=== PATIENT | female | born 1985 | race Asian ===

== ENCOUNTER 2017-02-11 07:44 | Emergency (ER) | payer OTHER ==
[~2017-02-11] VITALS: Ht 157.5 cm; Wt 57.0 kg
[~2017-02-11 07:44] MED LIST: TRIA0.5O TOPICAL
[2017-02-11 07:49] VITALS: BP 136/93; PULSE 74; RESP 16; TEMP 98; O2SAT 98
[2017-02-11] MEDS ORDERED: PREN29TA PO (07:52)
[2017-02-11 08:16] LABS: AUTOMATED NEUTROPHIL # 7.3 TH/MM3 (1.8-7.7); BASOPHIL # 0.1 TH/MM3 (0-0.2); BASOPHIL % 0.7 % (0.0-2.0); EOSINOPHIL # 0.3 TH/MM3 (0-0.4); EOSINOPHIL % 2.9 % (0.0-4.0); HEMATOCRIT 39.6 % (35.0-46.0); HEMO FLAGS DIFF FINAL; LYMPH % 24.8 % (9.0-44.0); LYMPHOCYTE # 2.8 TH/MM3 (1.0-4.8); MEAN CELL VOLUME 86.5 FL (80.0-100.0); MEAN CORPUSCULAR HEMOGLOBIN 28.7 PG (27.0-34.0); MEAN CORPUSCULAR HGB CONC 33.2 % (32.0-36.0); MONO % 7.2 % (0.0-8.0); NEUT % 64.4 % (16.0-70.0); PLATELET COUNT 247 TH/MM3 (150-450); RED BLOOD COUNT 4.57 MIL/MM3 (4.00-5.30); RED CELL DISTRIBUTION WIDTH 13.5 % (11.6-17.2); WHITE BLOOD COUNT 11.4 TH/MM3 (4.0-11.0)
[2017-02-11 08:26] LABS: BACTERIA, URINE RARE /hpf; BLOOD, URINE MOD (NEG); GLUCOSE,URINE NEG (NEG); KETONE, URINE NEG (NEG); NITRITE,URINE NEG (NEG); URINE COLOR LIGHT-YELLOW (YELLW/STRAW)
[2017-02-11 08:32] LABS: COMMENT (UR) CULT NOT INDICATED; CULTURE IF INDICATED CULT NOT INDICATED
[2017-02-11 08:33] LABS: BICARBONATE 26.5 MEQ/L (21.0-32.0)
[2017-02-11 08:55] LABS: POTASSIUM 3.2 MEQ/L (3.5-5.1)
--- NOTE | 2017-02-11 09:30 | RADRPT ---
EXAM DATE/TIME: 02/11/2017 08:07 [place] COMPARISON: No previous studies available for comparison. INDICATIONS : Ectopic. LAB(S): Beta-hC MEDICAL HISTORY : . Asthma. Eczema. SURGICAL HISTORY : None. ENCOUNTER: Initial ACUITY: 1 day PAIN SCORE: 2/10 LOCATION: Bilateral pelvis MEASUREMENTS: UTERUS: 8.6 x 7.7 x 4.5 cm ENDOMETRIAL STRIPE: 11 mm RIGHT OVARY: 2.2 x 2.1 x 1.8 cm CROWN RUMP LENGTH: 0.2 cm = 5 WKS 5 DAYS FINDINGS: UTERUS: There is hypoechoic mass within the uterus has the appearance of the yolk sac with no cardiac ac tivity identified. 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 This may well be blighted ovum with a small subchorionic hemorrhage. RIGHT OVARY: Small cyst. LEFT OVARY: Ovary contains no mass or significant cystic lesion. MISCELLANEOUS: No free fluid. CONCLUSION: Probable blighted ovary ovum corresponding to 5 week gestation. There is no free fluid. Followup is suggested. Sai Drake MD FACR on February 11, 2017 at 9:23 Board Certified Radiologist. This report was verified electronically.
--- NOTE | 2017-02-11 09:45 | PD ---
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 Patient reports that she is about 6 weeks with her first child, she noticed spotting and lower abdominal cramping earlier today. Denies any vaginal discharge at this time. NO other complaints PFSH Past Medical History Asthma: Yes ( A CHILD) ?: LMP: 01/02/17 Past Surgical History Surgical History: No Previous Surgery Social History Alcohol Use: Yes (SOCIALLY) Tobacco Use: No Substance Use: No Allergies-Medications (Allergen,Severity, Reaction): Coded Allergies: No Known Allergies (Unverified , 02/11/17) Reported Meds & Prescriptions Reported Meds & Active Scripts Active Reported Plus Iron 29-1 mg ( Vit-Iron Carbonyl) 29 Mg Iron-1 Mg Tab 1 Tab PO DAILY Review of Systems General / Constitutional: No: Fever Eyes: No: Visual changes HENT: No: Headaches Cardiovascular: No: Chest Pain or Discomfort Respiratory: No: Shortness of Breath Gastrointestinal: Positive: Abdominal Pain Genitourinary: Positive: Vaginal Bleeding, No: Dysuria Musculoskeletal: No: Pain Skin: No Rash Neurologic: No: Weakness Psychiatric: No: Depression Endocrine: No: Polydipsia Hematologic/Lymphatic: No: Easy Bruising Physical Exam Narrative GENERAL: No acute distress SKIN: Focused skin assessment warm/dry. HEAD: Atraumatic. Normocephalic. EYES: Pupils equal and round. No scleral icterus. No injection or drainage. ENT: No nasal bleeding or discharge. Mucous membranes pink and moist. NECK: Trachea midline. No JVD. CARDIOVASCULAR: Regular rate and rhythm. No murmur appreciated. RESPIRATORY: No accessory muscle use. Clear to auscultation. Breath sounds equal bilaterally. GASTROINTESTINAL: Abdomen soft, non-tender, nondistended. Hepatic and splenic margins not palpable. MUSCULOSKELETAL: No obvious deformities. No clubbing. No cyanosis. No edema. NEUROLOGICAL: Awake and alert. No obvious cranial nerve deficits. Motor grossly within normal limits. Normal speech. PSYCHIATRIC: Appropriate mood and affect; insight and judgment normal. Data Data Last Documented VS Vital Signs Date Time Temp Pulse Resp B/P (MAP) Pulse Ox O2 Delivery O2 Flow Rate FiO2 02/11/17 07:49 98.0 74 16 136/93 (107) 98 Orders Orders Beta Hcg (Quant/Titer) (02/11/17 07:48) Complete Blood Count With Diff (02/11/17 07:48) Basic Metabolic Panel (Bmp) (02/11/17 07:48) Complete Rh (02/11/17 07:48) Type And Screen (02/11/17 07:48) Us Pelvis (Ques Pr/Ect)W Trans (02/11/17 ) Urinalysis - C+S If Indicated (02/11/17 07:48) Iv Access Insert/Monitor (02/11/17 07:48) Ed Urine Pregnancytest Poc (02/11/17 07:52) Labs Laboratory Tests Test 02/11/17 08:00 White Blood Count 11.4 TH/MM3 Red Blood Count 4.57 MIL/MM3 Hemoglobin 13.1 GM/DL Hematocrit 39.6 % Mean Corpuscular Volume 86.5 FL Mean Corpuscular Hemoglobin 28.7 PG Mean Corpuscular Hemoglobin Concent 33.2 % Red Cell Distribution Width 13.5 % Platelet Count 247 TH/MM3 Mean Platelet Volume 9.0 FL Neutrophils (%) (Auto) 64.4 % Lymphocytes (%) (Auto) 24.8 % Monocytes (%) (Auto) 7.2 % Eosinophils (%) (Auto) 2.9 % Basophils (%) (Auto) 0.7 % Neutrophils # (Auto) 7.3 TH/MM3 Lymphocytes # (Auto) 2.8 TH/MM3 Monocytes # (Auto) 0.8 TH/MM3 Eosinophils # (Auto) 0.3 TH/MM3 Basophils # (Auto) 0.1 TH/MM3 CBC Comment DIFF FINAL Differential Comment Urine Color LIGHT-YELLOW Urine Turbidity CLEAR Urine pH 7.0 Urine Specific [place] 1.004 Urine Protein NEG mg/dL Urine Glucose (UA) NEG mg/dL Urine Ketones NEG mg/dL Urine Occult Blood MOD Urine Nitrite NEG Urine Bilirubin NEG Urine Urobilinogen LESS THAN 2.0 MG/DL Urine Leukocyte Esterase TRACE Urine RBC 1 /hpf Urine WBC 1 /hpf Urine Bacteria RARE /hpf Microscopic Urinalysis Comment CULT NOT INDICATED Blood Urea Nitrogen 9 MG/DL Creatinine 0.63 MG/DL Random Glucose 94 MG/DL Calcium Level 8.4 MG/DL Sodium Level 138 MEQ/L Potassium Level 3.2 MEQ/L Chloride Level 103 MEQ/L Carbon Dioxide Level 26.5 MEQ/L Anion Gap 9 MEQ/L Estimat Glomerular Filtration Rate 109 ML/MIN Human Chorionic Gonadotropin, Quant [id number] MIU/ML MDM Medical Decision Making Medical Screen Exam Complete: Yes Emergency Medical Condition: Yes Interpretation(s) Vital Signs Date Time Temp Pulse Resp B/P (MAP) Pulse Ox O2 Delivery O2 Flow Rate FiO2 02/11/17 07:49 98.0 74 16 136/93 (107) 98 Laboratory Tests Test 02/11/17 08:00 White Blood Count 11.4 TH/MM3 (4.0-11.0) Red Blood Count 4.57 MIL/MM3 (4.00-5.30) Hemoglobin 13.1 GM/DL (11.6-15.3) Hematocrit 39.6 % (35.0-46.0) Mean Corpuscular Volume 86.5 FL (80.0-100.0) Mean Corpuscular Hemoglobin 28.7 PG (27.0-34.0) Mean Corpuscular Hemoglobin Concent 33.2 % (32.0-36.0) Red Cell Distribution Width 13.5 % (11.6-17.2) Platelet Count 247 TH/MM3 (150-450) Mean Platelet Volume 9.0 FL (7.0-11.0) Neutrophils (%) (Auto) 64.4 % (16.0-70.0) Lymphocytes (%) (Auto) 24.8 % (9.0-44.0) Monocytes (%) (Auto) 7.2 % (0.0-8.0) Eosinophils (%) (Auto) 2.9 % (0.0-4.0) Basophils (%) (Auto) 0.7 % (0.0-2.0) Neutrophils # (Auto) 7.3 TH/MM3 (1.8-7.7) Lymphocytes # (Auto) 2.8 TH/MM3 (1.0-4.8) Monocytes # (Auto) 0.8 TH/MM3 (0-0.9) Eosinophils # (Auto) 0.3 TH/MM3 (0-0.4) Basophils # (Auto) 0.1 TH/MM3 (0-0.2) CBC Comment DIFF FINAL Differential Comment Urine Color LIGHT-YELLOW (YELLW/STRAW) Urine Turbidity CLEAR (CLEAR) Urine pH 7.0 (5.0-8.5) Urine Specific [place] 1.004 (1.002-1.035) Urine Protein NEG mg/dL (NEG-TRACE) Urine Glucose (UA) NEG mg/dL (NEG) Urine Ketones NEG mg/dL (NEG) Urine Occult Blood MOD (NEG) Urine Nitrite NEG (NEG) Urine Bilirubin NEG (NEG) Urine Urobilinogen LESS THAN 2.0 MG/DL (LESS Urine Leukocyte Esterase TRACE (NEG) Urine RBC 1 /hpf (0-3) Urine WBC 1 /hpf (0-5) Urine Bacteria RARE /hpf (NONE) Microscopic Urinalysis Comment CULT NOT INDICATED Blood Urea Nitrogen 9 MG/DL (7-18) Creatinine 0.63 MG/DL (0.50-1.00) Random Glucose 94 MG/DL (74-106) Calcium Level 8.4 MG/DL (8.5-10.1) Sodium Level 138 MEQ/L (136-145) Potassium Level 3.2 MEQ/L (3.5-5.1) Chloride Level 103 MEQ/L (98-107) Carbon Dioxide Level 26.5 MEQ/L (21.0-32.0) Anion Gap 9 MEQ/L (5-15) Estimat Glomerular Filtration Rate 109 ML/MIN (>89) Human Chorionic Gonadotropin, Quant [id number] MIU/ML (0-5) Last Impressions Pelvis Ultrasound 02/11/17 0000 Signed Impressions: Service Date/Time: Saturday, February 11, 2017 08:07 - CONCLUSION: Probable blighted ovary ovum corresponding to 5 week gestation. There is no free fluid. Followup is suggested. Sai Drake MD FACR Differential Diagnosis Differential includes early , UTI, miscarriage, ectopic Narrative Course CBC & BMP Diagram 02/11/17 08:00 Calcium Level 8.4 L Laboratory Tests Test 02/11/17 08:00 White Blood Count 11.4 TH/MM3 (4.0-11.0) Red Blood Count 4.57 MIL/MM3 (4.00-5.30) Hemoglobin 13.1 GM/DL (11.6-15.3) Hematocrit 39.6 % (35.0-46.0) Mean Corpuscular Volume 86.5 FL (80.0-100.0) Mean Corpuscular Hemoglobin 28.7 PG (27.0-34.0) Mean Corpuscular Hemoglobin Concent 33.2 % (32.0-36.0) Red Cell Distribution Width 13.5 % (11.6-17.2) Platelet Count 247 TH/MM3 (150-450) Mean Platelet Volume 9.0 FL (7.0-11.0) Neutrophils (%) (Auto) 64.4 % (16.0-70.0) Lymphocytes (%) (Auto) 24.8 % (9.0-44.0) Monocytes (%) (Auto) 7.2 % (0.0-8.0) Eosinophils (%) (Auto) 2.9 % (0.0-4.0) Basophils (%) (Auto) 0.7 % (0.0-2.0) Neutrophils # (Auto) 7.3 TH/MM3 (1.8-7.7) Lymphocytes # (Auto) 2.8 TH/MM3 (1.0-4.8) Monocytes # (Auto) 0.8 TH/MM3 (0-0.9) Eosinophils # (Auto) 0.3 TH/MM3 (0-0.4) Basophils # (Auto) 0.1 TH/MM3 (0-0.2) CBC Comment DIFF FINAL Differential Comment Urine Color LIGHT-YELLOW (YELLW/STRAW) Urine Turbidity CLEAR (CLEAR) Urine pH 7.0 (5.0-8.5) Urine Specific [place] 1.004 (1.002-1.035) Urine Protein NEG mg/dL (NEG-TRACE) Urine Glucose (UA) NEG mg/dL (NEG) Urine Ketones NEG mg/dL (NEG) Urine Occult Blood MOD (NEG) Urine Nitrite NEG (NEG) Urine Bilirubin NEG (NEG) Urine Urobilinogen LESS THAN 2.0 MG/DL (LESS Urine Leukocyte Esterase TRACE (NEG) Urine RBC 1 /hpf (0-3) Urine WBC 1 /hpf (0-5) Urine Bacteria RARE /hpf (NONE) Microscopic Urinalysis Comment CULT NOT INDICATED Blood Urea Nitrogen 9 MG/DL (7-18) Creatinine 0.63 MG/DL (0.50-1.00) Random Glucose 94 MG/DL (74-106) Calcium Level 8.4 MG/DL (8.5-10.1) Sodium Level 138 MEQ/L (136-145) Potassium Level 3.2 MEQ/L (3.5-5.1) Chloride Level 103 MEQ/L (98-107) Carbon Dioxide Level 26.5 MEQ/L (21.0-32.0) Anion Gap 9 MEQ/L (5-15) Estimat Glomerular Filtration Rate 109 ML/MIN (>89) Human Chorionic Gonadotropin, Quant 43747 MIU/ML (0-5) Last Impressions Pelvis Ultrasound 02/11/17 0000 Signed Impressions: Service Date/Time: Saturday, February 11, 2017 08:07 - CONCLUSION: Probable blighted ovary ovum corresponding to 5 week gestation. There is no free fluid. Followup is suggested. Sai Drake MD FACR I reviewed with patient all labs and all studies as well as all findings from today. Patient with blighted ovum. Patient will follow up with first calender worker and trend HCG quant till 0. Diagnosis Primary Impression: Miscarriage Patient Instructions: General Instructions Disposition: 01 DISCHARGE HOME Condition: Stable Nettie Sullivan DO Feb 11, 2017 09:45
[2017-02-25] MEDS ORDERED: TRIA TOPICAL (13:23)
== END 2017-02-11 10:09 | disposition home or self-care (01) ==
LOC: NEPC 07:44
DX: O03.9 Complete or unspecified spontaneous abortion without complication (principal); O02.0 Blighted ovum and nonhydatidiform mole; Z3A.01 Less than 8 weeks gestation of pregnancy; Z87.09 Personal history of other diseases of the respiratory system
CPT/HCPCS: 76700; 76817; 80048; 81001; 84702; 84703; 85025; 86850; 86900; 86901; 99284

== ENCOUNTER → 2017-02-25 | Outpatient (CLI) | payer OTHER ==
[~2017-02-25] MED LIST changes: +PREN29TA PO; +TRIA TOPICAL; -TRIA0.5O TOPICAL
[2017-02-25 14:25] LABS: AUTOMATED NEUTROPHIL # 7.7 TH/MM3 (1.8-7.7); BASOPHIL # 0.1 TH/MM3 (0-0.2); BASOPHIL % 0.5 % (0.0-2.0); EOSINOPHIL # 0.3 TH/MM3 (0-0.4); EOSINOPHIL % 2.7 % (0.0-4.0); HEMATOCRIT 36.8 % (35.0-46.0); HEMO FLAGS DIFF FINAL; LYMPH % 16.2 % (9.0-44.0); LYMPHOCYTE # 1.7 TH/MM3 (1.0-4.8); MEAN CELL VOLUME 87.4 FL (80.0-100.0); MEAN CORPUSCULAR HEMOGLOBIN 28.3 PG (27.0-34.0); MEAN CORPUSCULAR HGB CONC 32.4 % (32.0-36.0); MONO % 6.6 % (0.0-8.0); PLATELET COUNT 262 TH/MM3 (150-450); RED BLOOD COUNT 4.21 MIL/MM3 (4.00-5.30); RED CELL DISTRIBUTION WIDTH 13.7 % (11.6-17.2); WHITE BLOOD COUNT 10.4 TH/MM3 (4.0-11.0)
[2017-02-25 14:28] LABS: BLOOD, URINE NEG (NEG); GLUCOSE,URINE NEG (NEG); KETONE, URINE NEG (NEG); NITRITE,URINE NEG (NEG); PH, URINE 6.5 (5.0-8.5); URINE COLOR LIGHT-YELLOW (YELLW/STRAW)
== END ==
LOC: CPRE 12:55
PROVIDERS: ATTEND Obstetrics & Gynecology
DX: Z01.812 Encounter for preprocedural laboratory examination (principal); O02.1 Missed abortion
CPT/HCPCS: 36415; 81001; 85025

== ENCOUNTER → 2017-03-01 | Day surgery (SDC) | payer OTHER ==
[~2017-03-01] VITALS: Ht 157.5 cm; Wt 57.3 kg
[~2017-03-01] MED LIST changes: +*morphine SULFATE 8 MG/ML PERIprocedure ONLY ONE; +CHLORHEXIDINE GLUCONATE 2 % 1 PACK (2 CLOTHS) TOPICAL PRN; +DEXAMETHASONE SOD PHOS 4 MG/ML VIAL IV ONE; +DO NOT ADM ANY ANTICOAGULANT DRUGS PRN; +ESTROGENS CONJUGATED VAG CREA 15 APPL/30 GM TUBE ONE; +INSULIN HUMAN REGULAR 1,000 UNITS/10 ML VIAL SQ PRN; +KETOROLAC TROMETHAMINE 60 MG/2 ML (IM) VIAL IM ONE; +LACTATED RINGER'S 1000 ML INJ 1,000 ML IV ONE; +LACTATED RINGER'S 1000 ML IV PRN; +LIDOCAINE HCL 1% PF 5 ML AMPULE OTHER ONE; +MEPERIDINE HCL 50 MG/ML VIAL IM PRN; +METHYLERGONOVINE MALEATE 0.2 MG TAB PO PRN; +METHYLERGONOVINE MALEATE 0.2 MG/ML VIAL IM ONE; +METOPROLOL TARTRATE 25 MG TAB PO PRN; +MIDAZOLAM HCL 2 MG/2 ML VIAL ONE; +ONDANSETRON HCL 4 MG/2 ML VIAL IV PUSH ONE; +ONDANSETRON HCL 4 MG/2 ML VIAL IV PUSH PRN; +POVIDONE IODINE 5% (ANTISEPSIS KIT) 4 APPLICATIONS EACH NARE PRN; -PREN29TA PO; +PROPOFOL 200 MG/20 ML AMP IV ONE; +SODIUM CHLORID 0.9% 500 ML IV PRN; +ceFAZolin 1,000 MG/NS 100 ML IV ONE; +oxyCODONE/ACETAMINOPHEN 5 MG/325 MG TAB ONE; +oxyCODONE/ACETAMINOPHEN 5 MG/325 MG TAB PO PRN
[2017-03-01 14:05] VITALS: BP 124/77; PULSE 69; RESP 16; TEMP 97.8; O2SAT 100
--- NOTE | 2017-03-02 09:43 | MP ---
cc: JESIMARIA ISABEL SIMON DATE OF SURGERY: 03/01/2017 POSTOPERATIVE DIAGNOSIS 1. Missed AB. 2. 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 POSTOPERATIVE DIAGNOSIS 1. Missed AB. 2. 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 PROCEDURE MyoSure-directed removal of products of conception and evaluation of the intrauterine cavities. ANESTHESIA General. SURGEON [place]. HANDS ASSEMBLER OR Staff. FINDINGS Examination under anesthesia revealed a mildly enlarged uterus that did feel at least heart shaped. The cervix was easily dilated but it was very difficult to get into the left horn. The right was easily entered. Upon adequate dilation the right horn was filled with saline, the MyoSure introduced and the embryo identified and removed. It was not quite possible to determine if this was truly a bicornuate uterus or if there was a septum in the middle, but the medial wall did not appear to have much endometrium on it. Attempts to enter the left horn were not successful largely due to bleeding and decreased visualization. When the 2500 cc max of deficit was reached the procedure was discontinued. Bleeding was brisk for a few minutes and then resolved with massage and Methergine. Sponge, instrument and needle counts were correct. Her blood type is O+. DETAILS OF PROCEDURE The patient was identified as Janie Olson. Her permit was reviewed with her in Holding. She was taken to the operating room, prepped and draped in the usual sterile fashion in the dorsal lithotomy position. A timeout was performed. A red rubber catheter was used to drain the bladder. Examination under anesthesia was performed and then the cervix was visualized and grasped with a single-tooth tenaculum to hold in place while it was dilated to allow the passage of the MyoSure scope. As mentioned above it was quite easy to get into the right horn, evaluate the embryo and the intrauterine cavity with a single tubal ostia seen in the upper left, but I did not get into the left horn. Attention was directed to the embryo using the MyoSure which was removed in its entirety. Bleeding was brisk but rendered hemostatic with continued visually directed curettage. The medial wall appeared to be atrophic and not having endometrium, more like a septum than a bicornuate uterus. Attempts to enter the left cornua were made but unsuccessful and when the 2500 cc limit was reached the instrumentation was removed and the procedure ended. She was placed in dorsal supine position after massaging the uterus bimanually, and then awoken and taken to the recovery room in stable condition. MD BABATUNDE Macias/BT /5:13 PM /9:26 AM
== END | disposition home or self-care (01) ==
LOC: HSDC 09:31
PROVIDERS: ATTEND Obstetrics & Gynecology
DX: O02.1 Missed abortion (principal); Q51.3 Bicornate uterus
CPT/HCPCS: 01965; 59820; 86850; 86900; 86901; 88305; J0690; J1100; J1885; J2210; J2250; J2270; J2405; J3010; J7120

== ENCOUNTER 2017-03-04 22:47 | Observation (INO) | payer OTHER ==
[~2017-03-04] VITALS: Ht 157.5 cm; Wt 59.0 kg
[~2017-03-04 22:47] MED LIST changes: -*morphine SULFATE 8 MG/ML PERIprocedure ONLY ONE; -CHLORHEXIDINE GLUCONATE 2 % 1 PACK (2 CLOTHS) TOPICAL PRN; -DEXAMETHASONE SOD PHOS 4 MG/ML VIAL IV ONE; -DO NOT ADM ANY ANTICOAGULANT DRUGS PRN; -ESTROGENS CONJUGATED VAG CREA 15 APPL/30 GM TUBE ONE; -INSULIN HUMAN REGULAR 1,000 UNITS/10 ML VIAL SQ PRN; -KETOROLAC TROMETHAMINE 60 MG/2 ML (IM) VIAL IM ONE; -LACTATED RINGER'S 1000 ML INJ 1,000 ML IV ONE; -LACTATED RINGER'S 1000 ML IV PRN; -LIDOCAINE HCL 1% PF 5 ML AMPULE OTHER ONE; -MEPERIDINE HCL 50 MG/ML VIAL IM PRN; -METHYLERGONOVINE MALEATE 0.2 MG TAB PO PRN; -METHYLERGONOVINE MALEATE 0.2 MG/ML VIAL IM ONE; -METOPROLOL TARTRATE 25 MG TAB PO PRN; -MIDAZOLAM HCL 2 MG/2 ML VIAL ONE; -ONDANSETRON HCL 4 MG/2 ML VIAL IV PUSH ONE; -ONDANSETRON HCL 4 MG/2 ML VIAL IV PUSH PRN; -POVIDONE IODINE 5% (ANTISEPSIS KIT) 4 APPLICATIONS EACH NARE PRN; -PROPOFOL 200 MG/20 ML AMP IV ONE; -SODIUM CHLORID 0.9% 500 ML IV PRN; -ceFAZolin 1,000 MG/NS 100 ML IV ONE; -oxyCODONE/ACETAMINOPHEN 5 MG/325 MG TAB ONE; -oxyCODONE/ACETAMINOPHEN 5 MG/325 MG TAB PO PRN
[2017-03-04 23:00] VITALS: BP 110/67; PULSE 76; RESP 18; TEMP 98.1; O2SAT 100
[2017-03-04] MEDS: SODIUM CHLOR 0.9% 1000 ML INJ 1,000 ML IV SCH (23:07)
[2017-03-04 23:33] LABS: AUTOMATED NEUTROPHIL # 17.1 TH/MM3 (1.8-7.7); BASOPHIL # 0.1 TH/MM3 (0-0.2); BASOPHIL % 0.4 % (0.0-2.0); EOSINOPHIL # 0.1 TH/MM3 (0-0.4); EOSINOPHIL % 0.7 % (0.0-4.0); HEMATOCRIT 26.6 % (35.0-46.0); HEMO FLAGS DIFF FINAL; LYMPH % 6.6 % (9.0-44.0); LYMPHOCYTE # 1.3 TH/MM3 (1.0-4.8); MEAN CELL VOLUME 87.9 FL (80.0-100.0); MEAN CORPUSCULAR HEMOGLOBIN 28.9 PG (27.0-34.0); MEAN CORPUSCULAR HGB CONC 32.9 % (32.0-36.0); MONO % 5.2 % (0.0-8.0); NEUT % 87.1 % (16.0-70.0); PLATELET COUNT 209 TH/MM3 (150-450); RED BLOOD COUNT 3.03 MIL/MM3 (4.00-5.30); RED CELL DISTRIBUTION WIDTH 14.1 % (11.6-17.2); WHITE BLOOD COUNT 19.6 TH/MM3 (4.0-11.0)
[2017-03-04 23:38] LABS: BICARBONATE 24.3 MEQ/L (21.0-32.0); POTASSIUM 3.2 MEQ/L (3.5-5.1)
[2017-03-04] MEDS ORDERED: KETOROLAC TROMETHAMINE 30 MG/ML (IVP) VIAL IV PUSH ONE (23:45)
[2017-03-05] VITALS (11 sets, daily range): BP systolic 99–125; BP diastolic 60–75; PULSE 71–91; RESP 13–18; TEMP 96.4–98.7; O2SAT 99–100
[2017-03-05 00:05] LABS: BLOOD, URINE LARGE (NEG); COMMENT (UR) CULTURE INDICATED; CULTURE IF INDICATED CULTURE INDICATED; GLUCOSE,URINE 70 mg/dL (NEG); KETONE, URINE NEG (NEG); MUCUS URINE FEW /lpf (OCC); NITRITE,URINE NEG (NEG); URINE COLOR YELLOW (YELLW/STRAW)
[2017-03-05] MEDS ORDERED: MISOPROSTOL 200 MCG TAB PO ONE (00:15)
[2017-03-05] MEDS ORDERED: SODIUM CHLORIDE 0.9% FLUSH 10 ML FLUSH IVF PRN (00:45)
[2017-03-05] MEDS ORDERED: METHYLERGONOVINE MALEATE 0.2 MG/ML VIAL IM ONE (00:45)
[2017-03-05] MEDS ORDERED: METHYLERGONOVINE MALEATE 0.2 MG/ML VIAL IM PRN (00:45)
[2017-03-05] MEDS ORDERED: IRON SUCROSE 100 MG/5 ML VIAL IV PUSH ONE ×2 (00:45→12:15)
--- NOTE | 2017-03-05 00:48 | PD ---
HPI Chief Complaint: Syncope/Near-Syncope Time Seen by Provider: 22:58 Travel History International Travel<30 days: No Contact w/Intl Traveler<30days: No Traveled to known affect area: No History of Present Illness HPI 32-year-old female presents to the emergency department by private transportation the care of her spouse for near syncopal episode at home. Patient is status post hysteroscopy D&C and mild sure procedure 03/01/17 by her regional sales representative Dr. Booth. Patient is 1 para 0 AB 1. Last period was 01/02/17 and normal for her. Patient had an ultrasound performed 02/11/17 which showed a blighted ovum. 29/01/17 patient started having some intermittent vaginal bleeding. Patient has been doing fairly well with some vaginal bleeding and spotting however had heavy bleeding on evening so saw her regional sales representative in the office on 03/04/17 and ultrasound was performed which showed no evidence of retained products of conception. Patient was discharged to home and told to rest. Since being home she's had 2 episodes of vaginal bleeding and the one just prior to arrival to the emergency department she thought was quite heavy and while sitting on the toilet with the assistance of her her witnessed her to have an couple episode he thought she might have some mild seizure-like activity. estimates the entire episode was 15- 30 seconds. Patient did not have any postictal confusion. Patient was able to stand subsequently and was assisted by her and there was no trauma. insisted that she comes to the emergency room and they present at this time. No report of fever or chills. No report of chest pain or shortness of breath. No report of vomiting. Patient states pain is 2/10 in intensity. Patient states pain is intermittent and cramping in nature. Patient denies any chronic medical conditions. No previous surgeries or interventions. Immunizations are current. PFSH Past Medical History Narrative Medical asthma, Ab/mis1; occasional alcohol use; nursing notes reviewed Asthma: Yes ( A CHILD) Cancer: No Cardiovascular Problems: No Diabetes: No Endocrine: No Genitourinary: No Hepatitis: No Hiatal Hernia: No Immune Disorder: No Musculoskeletal: No Neurologic: No Psychiatric: No Reproductive: Yes (miscarriage 7 wks 5 days) Respiratory: Yes (HISTORY OF ASTHMA) Thyroid Disease: No Tetanus Vaccination: < 5 Years Influenza Vaccination: Yes ?: Not : 1 Miscarriage: 1 Past Surgical History AICD: No Joint Replacement: No Pacemaker: No Other Surgery: No Social History Alcohol Use: Yes (SOCIALLY) Tobacco Use: No Substance Use: No Allergies-Medications (Allergen,Severity, Reaction): Coded Allergies: No Known Allergies (Unverified , 03/01/17) Reported Meds & Prescriptions Reported Meds & Active Scripts Active No Active Prescriptions or Reported Medications Review of Systems Except as stated in HPI: all other systems reviewed are Neg General / Constitutional: No: Fever, Chills HENT: No: Congestion Cardiovascular: Positive: Syncope, No: Chest Pain or Discomfort, Diaphoresis Respiratory: No: Shortness of Breath Gastrointestinal: Positive: Abdominal Pain, No: Vomiting Genitourinary: Positive: Pelvic Pain, Vaginal Bleeding, No: Dysuria Musculoskeletal: No: Myalgias, Arthralgias Skin: No Rash Neurologic: Positive: Weakness Psychiatric: No: Anxiety Hematologic/Lymphatic: No: Lymph Node Enlargement Physical Exam Narrative GENERAL: Well-developed well-nourished female in no acute distress no respiratory distress SKIN: Warm and dry. HEAD: Normocephalic. EYES: No scleral icterus. No injection or drainage. NECK: Supple, trachea midline. No JVD or lymphadenopathy. CARDIOVASCULAR: Regular rate and rhythm without murmurs, gallops, or rubs. RESPIRATORY: Breath sounds equal bilaterally. No accessory muscle use. GASTROINTESTINAL: Abdomen soft, non-tender, nondistended. Pelvic exam: External exam normal without lesions induration or erythema; speculum exam scant blood in the vaginal vault no clots no tissue cervical os is closed; with sterile exam gloves bimanual exam no cervical motion tenderness no adnexal tenderness or mass. MUSCULOSKELETAL: No cyanosis, or edema. BACK: Nontender without obvious deformity. No CVA tenderness. Data Data Last Documented VS Vital Signs Date Time Temp Pulse Resp B/P (MAP) Pulse Ox O2 Delivery O2 Flow Rate FiO2 03/05/17 00:37 69 18 99/60 (73) 75 18 105/62 (76) 85 18 101/63 (76) 03/04/17 23:05 100 Room Air 03/04/17 23:00 98.1 Orders Orders Beta Hcg (Quant/Titer) (03/04/17 22:59) Complete Blood Count With Diff (03/04/17 22:59) Basic Metabolic Panel (Bmp) (03/04/17 22:59) Type And Screen (03/04/17 22:59) Urinalysis - C+S If Indicated (03/04/17 22:59) Iv Access Insert/Monitor (03/04/17 22:59) Sodium Chlor 0.9% 1000 Ml Inj (Ns 1000 M (03/04/17 23:00) Ketorolac Inj (Toradol Inj) (03/04/17 23:45) Urine Culture (03/04/17 23:27) Orthostatic Vital Signs (03/05/17 00:10) Misoprostol (Cytotec) (03/05/17 00:15) Iron Sucrose Inj (Venofer Inj) (03/05/17 00:45) Methylergonovine Inj (Methergine Inj) (03/05/17 00:45) Admit Order (Ed Use Only) (03/05/17 ) ^ Saline Lock (03/05/17 00:44) Resp Oxygen Segundo C Titrat 1-4 L (03/05/17 ) Notify Dr: Other (03/05/17 00:44) Sodium Chloride 0.9% Flush (Ns Flush) (03/05/17 09:00) Sodium Chloride 0.9% Flush (Ns Flush) (03/05/17 00:45) Methylergonovine Inj (Methergine Inj) (03/05/17 00:45) ^ For Further Orders (03/05/17 00:44) Labs Laboratory Tests Test 03/04/17 23:05 03/04/17 23:27 White Blood Count 19.6 TH/MM3 Red Blood Count 3.03 MIL/MM3 Hemoglobin 8.7 GM/DL Hematocrit 26.6 % Mean Corpuscular Volume 87.9 FL Mean Corpuscular Hemoglobin 28.9 PG Mean Corpuscular Hemoglobin Concent 32.9 % Red Cell Distribution Width 14.1 % Platelet Count 209 TH/MM3 Mean Platelet Volume 9.5 FL Neutrophils (%) (Auto) 87.1 % Lymphocytes (%) (Auto) 6.6 % Monocytes (%) (Auto) 5.2 % Eosinophils (%) (Auto) 0.7 % Basophils (%) (Auto) 0.4 % Neutrophils # (Auto) 17.1 TH/MM3 Lymphocytes # (Auto) 1.3 TH/MM3 Monocytes # (Auto) 1.0 TH/MM3 Eosinophils # (Auto) 0.1 TH/MM3 Basophils # (Auto) 0.1 TH/MM3 CBC Comment DIFF FINAL Differential Comment Blood Urea Nitrogen 11 MG/DL Creatinine 0.76 MG/DL Random Glucose 149 MG/DL Calcium Level 7.6 MG/DL Sodium Level 138 MEQ/L Potassium Level 3.2 MEQ/L Chloride Level 105 MEQ/L Carbon Dioxide Level 24.3 MEQ/L Anion Gap 9 MEQ/L Estimat Glomerular Filtration Rate 88 ML/MIN Human Chorionic Gonadotropin, Quant 53321 MIU/ML Urine Color YELLOW Urine Turbidity CLEAR Urine pH 7.0 Urine Specific [place] 1.017 Urine Protein 100 mg/dL Urine Glucose (UA) 70 mg/dL Urine Ketones NEG mg/dL Urine Occult Blood LARGE Urine Nitrite NEG Urine Bilirubin NEG Urine Urobilinogen 2.0 MG/DL Urine Leukocyte Esterase TRACE Urine RBC /hpf Urine WBC 48 /hpf Urine Mucus FEW /lpf Microscopic Urinalysis Comment CULTURE INDICATED MDM Medical Decision Making Medical Screen Exam Complete: Yes Emergency Medical Condition: Yes Medical Record Reviewed: Yes Interpretation(s) CBC & BMP Diagram 03/04/17 23:05 Calcium Level 7.6 L Vital Signs Date Time Temp Pulse Resp B/P (MAP) Pulse Ox O2 Delivery O2 Flow Rate FiO2 03/05/17 00:37 69 18 99/60 (73) 75 18 105/62 (76) 85 18 101/63 (76) 03/04/17 23:05 18 100 Room Air 03/04/17 23:00 98.1 76 18 110/67 (81) 100 Differential Diagnosis Syncope/near syncope, vasovagal event, anemia, vaginal bleeding, endometritis, retained products of conception Narrative Course IV access obtained specimens collected and sent for resulting Patient with episode of cramping and then passing a moderate amount of urine and blood into a bedpan patient administered Toradol 30 mg IV IV fluids administered Patient's case discussed with her regional sales representative Dr. Booth who requests the patient received Methergine 0.2 mg IM now and Methergine 0.2 mg by mouth every 4 and the previously ordered Cytotec 200milligrams by mouth per covering physician discontinued. Dr. Booth also wanted her to receive Venofer injection x 1 dose and admit as obs overnight to her service Physician Communication Physician Communication discussed with Dr Orona; discussed with Dr Albarran ([phone]) Diagnosis Primary Impression: Vaginal bleeding Additional Impressions: Status post D&C Anemia Admitting Information Admitting Physician Requests: Observation Scripts No Active Prescriptions or Reported Meds Tanya Mendoza MD Mar 05, 2017 00:48
[2017-03-05] MEDS ORDERED: ONDANSETRON HCL 4 MG/2 ML VIAL IV PRN (01:15)
[2017-03-05] MEDS: METHYLERGONOVINE MALEATE 0.2 MG TAB PO SCH ×2 (03:29→08:00)
[2017-03-05] MEDS ORDERED: ceFAZolin 2 GM PREMIX 50 ML IV SCH (08:15)
[2017-03-05] MEDS: SODIUM CHLOR 0.9% 1000 ML INJ 1,000 ML IV SCH (08:25)
[2017-03-05] MEDS ORDERED: SODIUM CHLORIDE 0.9% FLUSH 10 ML FLUSH IV FLUSH SCH (09:00)
--- NOTE | 2017-03-05 09:18 | MH ---
cc: MARIA ISABEL RIGGS DATE OF ADMISSION: 03/05/2017 DATE OF : 1985. She is 32. 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 Ultrasound in our office had shown no products of conception but the informed clot in the fundus and lower uterine segment of both horns and it is apparent that she is not able to pass this on her own and then suction curettage with the most expedient. She has no chronic or systemic illnesses. She does not smoke, drink or use illicit is drugs. She is otherwise in excellent health desires conception in the near future. This miscarriage was likely just a unavoidable event not necessarily related to her bicornuate uterus which has been adequately evaluated. Other than a childhood history of asthma. There is no other issues on physical she is a slim female who appears little pale today a little fatigued she is alert and oriented her lungs are clear. Heart is regular. Pelvic: Exam today is deferred at was done yesterday her cervix was closed. She has a single cervix with a bicornuate uterus. She is an excellent candidate for simple suction curettage with minimal trauma to the endometrial lining on both horns. IMPRESSION: Impression is bicornuate uterus with a blighted ovum on the right horn removed by Mr. Prajapati. The MyoSure on Tuesday but uterus is not clamping down and she is continuing to develop clot and bleed. She therefore needs evacuation of these clots any residual products of conception that they do exist and therefore then she will be older clamp down and stop bleeding and heal. The risks, benefits, expectations have been reviewed and she will sign consents and go to the operating room in the near future. Maria IsabelMD BABATUNDE Salcedo/kenzie /8:03 AM /9:06 AM
[2017-03-05] MEDS ORDERED: FAMOTIDINE 20 MG/2 ML VIAL ONE (11:26)
[2017-03-05] MEDS ORDERED: ESTROGENS CONJUGATED VAG CREA 15 APPL/30 GM TUBE ONE (11:59)
[2017-03-05] MEDS ORDERED: OXYTOCIN 10 UNIT/ML AMP ONE (11:59)
[2017-03-05] MEDS ORDERED: LIDOCAINE HCL 1% PF 5 ML AMPULE OTHER ONE (12:00)
[2017-03-05] MEDS ORDERED: ONDANSETRON HCL 4 MG/2 ML VIAL IV PUSH ONE (12:00)
[2017-03-05] MEDS ORDERED: DEXAMETHASONE SOD PHOS 4 MG/ML VIAL IV ONE (12:00)
[2017-03-05] MEDS ORDERED: GLYCOPYRROLATE 0.2 MG/ML VIAL IV ONE (12:00)
[2017-03-05] MEDS ORDERED: PROPOFOL 200 MG/20 ML AMP IV ONE (12:00)
[2017-03-05] MEDS ORDERED: MIDAZOLAM HCL 2 MG/2 ML VIAL IV ONE (12:00)
[2017-03-05] MEDS ORDERED: ceFAZolin INJ 1,000 MG VIAL IV ONE (12:00)
[2017-03-05] MEDS ORDERED: oxyCODONE/ACETAMINOPHEN 10 MG/325 MG TAB PO PRN (12:15)
[2017-03-05] MEDS ORDERED: oxyCODONE/ACETAMINOPHEN 5 MG/325 MG TAB PO PRN (12:15)
[2017-03-05] MEDS ORDERED: ONDANSETRON HCL 4 MG/2 ML VIAL IV PUSH PRN (12:15)
[2017-03-05] MEDS ORDERED: DO NOT ADM ANY ANTICOAGULANT DRUGS PRN (13:30)
--- NOTE | 2017-03-05 13:33 | MP ---
cc: MARIA ISABEL RIGGS MD DATE OF SURGERY: 03/05/17 POSTOPERATIVE DIAGNOSIS Continued bleeding after the MyoSure removal of embryo. POSTOPERATIVE DIAGNOSES 1. Continued bleeding after the MyoSure removal of embryo. 2. Significant POC in the intrauterine cavity preventing complete involution and causing bleeding. PROCEDURE Suction curettage. ANESTHESIA General. SURGEON Dr. Riggs. FINDINGS The uterus size sounded still to about 9 cm on the right, the left side was 7. This was done very gently with a suction curette and not with a sound. The size 8 suction curette was easily placed into the right horn with significant clots and some products of conception noted. These were not attached but yet in the uterus so that the uterus could not clamp down and with the added blood the uterus was remaining subinvoluted and bleeding. Procedure was otherwise uneventful. There was no evidence of other pathology and she tolerated the procedure well. PROCEDURE The patient was identified as Janie Olson. She was taken to the operating room. She was given 1 gram of Ancef. A timeout was performed with all in attendance. She was prepped and draped in dorsolithotomy position and prepped and then a weighted speculum was placed. She did have her bladder emptied with a red rubber. The cervix was gently grasped with a single-tooth tenaculum and gently dilated to allow passage of the size 8 suction curette on the right and left horns. The right horn was much deeper and bigger than the left, and there were significant clots in there and what looked like some products of conception. These did not appear to be on the endometrium at all but were within the material obtained. With removal of all this tissue, the uterus was firm. The bleeding was negligible. She was awoken and taken to the recovery room in stable condition. Her blood type is Rh positive. MD BABATUNDE Macias/KWAME /12:41 PM /1:13 PM
--- NOTE | 2017-03-05 14:57 | EKG ---
Date Performed: 03/05/2017 Time Performed: 02:55:51 PTAGE: 32 years EKG: Sinus rhythm BORDERLINE RIGHT AXIS DEVIATION INCOMPLETE RIGHT BUNDLE BRANCH BLOCK BORDERLINE ECG NO PREVIOUS TRACING DOCTOR: Main Spears Interpretating Date/Time 03/05/2017 14:55:58
== END 2017-03-05 16:20 | disposition home or self-care (01) ==
LOC: NEPC 22:47 → NEDA 03-05 00:48 → UNDOADMOB 03-05 00:48 → NEDA 03-05 02:14 → HOCA 03-05 02:14 → UNDODISOB 03-05 16:20
PROVIDERS: ADMIT Obstetrics & Gynecology; ATTEND Obstetrics & Gynecology
DX: O02.0 Blighted ovum and nonhydatidiform mole (principal); R82.99 Other abnormal findings in urine; B96.20 Unspecified Escherichia coli [E. coli] as the cause of diseases classified elsewhere; Q51.3 Bicornate uterus; D64.9 Anemia, unspecified; Z98.890 Other specified postprocedural states
CPT/HCPCS: 01965; 59820; 80048; 81001; 84702; 85025; 86850; 86900; 86901; 87077; 87086; 87186; 88305; 93005; 96361; 96374; 96375; 96376; 99285; G0378; J0690; J1100; J1756; J1885; J2210; J2250; J2405; J3010; J7030; J2590